=== PATIENT | male | born 1945 | race Two or more races ===

== ENCOUNTER 2018-03-30 14:42 | Emergency (ER) | payer MEDICARE ==
[~2018-03-30] VITALS: Ht 167.6 cm; Wt 109.4 kg
[2018-03-30 15:26] VITALS: BP 135/80
--- NOTE | 2018-03-30 15:29 | NUR ---
TASK RN: PT AMBULATED STEADILY TO ROOM WITH BACK TENDER PULP DRIER AND , NAD NOTED. PT REPORTS SUDDEN ONSET DRAINAGE FROM LAP SURGICAL SITE LADLE PULLER. +REDNESS AND PURULENT DRAINAGE NOTED. SHEMAR PROCEDURE ON 02/14. PT DENIES FEVER/N/V/ABD PAIN/CHANGES IN BOWEL OR BLADDER HABIT. IV ESTABLISHED, LABS DRAWN, BC X1 DRAWN. BP/SPO2 MONITOR IN PLACE. SO AT BEDSIDE. Addendum: 03/30/18 at 1538 by LWEGENER *CORRECTION: SANGUINEOUS DRAINAGE
[2018-03-30 15:35] LABS: BASOPHILS # (AUTO) 0.08 x10^3/uL (0-0.1); BASOPHILS % (AUTO) 1 % (0-1); EOSINOPHILS # (AUTO) 0.33 x10^3/uL (0-0.4); EOSINOPHILS % (AUTO) 3 % (1-7); LYMPHOCYTES % (AUTO) 24 % (22-44); MD NO; MEAN CORPUSCULAR HEMOGLOBIN 22.8 pg (27.5-34.5); MEAN CORPUSCULAR HGB CONC 31.9 g/dL (33.2-36.2); MEAN CORPUSCULAR VOLUME 71.3 fL (81-97); MEAN PLATELET VOLUME 8.5 fL (7.4-10.4); MONOCYTES # (AUTO) 0.47 x10^3/uL (0.2-0.8); MONOCYTES % (AUTO) 5 % (2-9); NEUTROPHILS # (AUTO) 6.97 x10^3/uL (1.8-6.8); NEUTROPHILS % (AUTO) 67 % (42-75); PLATELET COUNT 332 x10^3/uL (130-400); RED CELL DISTRIBUTION WIDTH 16.4 % (9.4-14.8)
--- NOTE | 2018-03-30 15:38 | NUR ---
TASK RN: SURGICAL MARKER USED TO TRACE AREA OF REDNESS. PT DENIES PAIN AT THIS TIME OR NEED FOR PAIN MEDICATIONS.
[2018-03-30 15:44] LABS: ALBUMIN 3.5 g/dL (3.4-5.0); ANION GAP 8 mmol/L (5-15); CALCIUM 9.1 mg/dL (8.5-10.1); CHLORIDE 105 mmol/L (98-107); CREATININE 0.95 mg/dL (0.7-1.3)
--- NOTE | 2018-03-30 16:04 | NUR ---
ELMA RN NOTE: PATIENT ABDOMINAL WOUND DRESSED WITH GAUZE AND ADAPTIC. PATIENT GIVNE SUPPLIES FOR RE-DRESSING WHILE IN CAR BACK HOME TO [place] TODAY. EDUCATION PROVIDED TO PATIENT AND FRIENDS AT BEDSIDE
== END 2018-03-30 16:09 | disposition home or self-care (01) ==
LOC: ED 16:00
DX: L02.211 Cutaneous abscess of abdominal wall (principal); Z90.49 Acquired absence of other specified parts of digestive tract
CPT/HCPCS: 36415; 80048; 82040; 85025; 99283